=== PATIENT | female | born 1960 | race Caucasian/White ===

== ENCOUNTER 2017-07-18 12:05 | Emergency (ER) | payer BC, SELFPAY ==
[2017-07-18] MEDS ORDERED: Ketorolac Tromethamine 60 MG/2 ML VIAL ONE (12:26)
== END 2017-07-18 13:43 | disposition home or self-care (01) ==
LOC: MADERS 12:05
DX: T78.40XA Allergy, unspecified, initial encounter (principal); I10 Essential (primary) hypertension; J45.909 Unspecified asthma, uncomplicated; F41.9 Anxiety disorder, unspecified; M19.90 Unspecified osteoarthritis, unspecified site; F32.9 Major depressive disorder, single episode, unspecified; Z79.899 Other long term (current) drug therapy
CPT/HCPCS: 96372; J1040; J1885

== ENCOUNTER 2023-02-01 14:25 | Emergency (ER) | payer BC ==
[2023-02-01] MEDS ORDERED: HYDROcodone/Acetaminophen 5/325 mg Tablet ONE (16:20)
== END 2023-02-01 17:09 | disposition home or self-care (01) ==
LOC: MADERS 14:25
DX: S20.212A Contusion of left front wall of thorax, initial encounter (principal); I10 Essential (primary) hypertension; J45.909 Unspecified asthma, uncomplicated; M19.90 Unspecified osteoarthritis, unspecified site; W18.30XA Fall on same level, unspecified, initial encounter; Z79.899 Other long term (current) drug therapy
CPT/HCPCS: 71250; 93005